=== PATIENT | male | born 1955 | race Caucasian/White ===

== ENCOUNTER 2017-08-09 09:17 | Inpatient (IN) | payer MEDICARE, MEDICAID ==
[~2017-08-09] VITALS: Ht 170.2 cm; Wt 74.0 kg
[2017-08-09] VITALS (10 sets, daily range): BP systolic 129–152; BP diastolic 58–89
[~2017-08-09 09:17] MED LIST: HYDR-565 PO; MULT-1179 MT; PANT-47 PO
[2017-08-09 10:28] LABS: BASOPHILS # (AUTO) 0.1 X10'3 (0-0.2); BASOPHILS % (AUTO) 2.1 % (0-1); EOSINOPHILS # (AUTO) 0.4 X10'3 (0-0.9); EOSINOPHILS % (AUTO) 5.7 % (0-6); HEMATOCRIT 23.4 % (42.0-52.0); LYMPHOCYTES # (AUTO) 1.1 X10'3 (1.1-4.8); LYMPHOCYTES % (AUTO) 17.3 % (21-51); MEAN CORPUSCULAR HEMOGLOBIN 20.8 PG (27.0-31.0); MEAN CORPUSCULAR HGB CONC 29.8 % (33.0-36.5); MEAN PLATELET VOLUME 9.7 FL (7.4-10.4); MONOCYTES # (AUTO) 0.6 X10'3 (0-0.9); MONOCYTES % (AUTO) 9.3 % (2-12); NEUTROPHILS # (AUTO) 4.3 X10'3 (1.8-7.7); NEUTROPHILS % (AUTO) 65.6 % (42-75); PLATELET COUNT 246 X10'3 (140-440); RED BLOOD COUNT 3.34 X10'6 (4.70-6.10); RED CELL DISTRIBUTION WIDTH 19.5 % (11.5-14.5); WHITE BLOOD COUNT 6.5 X10'3 (4.5-11.0)
[2017-08-09] MEDS ORDERED: normal saline 1000ML IV soln IVB ONE (10:35)
[2017-08-09 10:41] LABS: ALANINE AMINOTRANSFERASE 22 U/L (12-78); ALBUMIN 3.7 G/DL (3.4-5.0); ALKALINE PHOSPHATASE 71 IU/L (46-116); ANION GAP 8 (8-16); ASPARTATE AMINO TRANSFERASE 24 U/L (10-37); BILIRUBIN,TOTAL 0.3 MG/DL (0.1-1.0); BLOOD UREA NITROGEN 12 MG/DL (7-18); BUN/CREATININE RATIO 10.9 (5.4-32.0); CALCIUM 9.3 MG/DL (8.5-10.1); CHLORIDE 107 MMOL/L (99-107); GLUCOSE 93 MG/DL (70-104); POTASSIUM 4.5 MMOL/L (3.5-5.1); SODIUM 138 MMOL/L (135-145); TOTAL CARBON DIOXIDE 23.5 MMOL/L (24-32); TOTAL PROTEIN 7.3 G/DL (6.4-8.2); eGFR 68 ML/MIN
[2017-08-09 10:51] LABS: INR 0.9 INR; PARTIAL THROMBOPLASTIN TIME 24 SECONDS (22-32); PROTHROMBIN TIME 9.5 SECONDS (9.0-12.0)
[2017-08-09 11:06] LABS: CLARITY,URINE CLEAR (Clear); COLOR,URINE YELLOW (Yellow); GLUCOSE, URINE NEGATIVE (Neg); KETONES,URINE NEGATIVE (Neg); LEUKOCYTE ESTERASE ,URINE NEGATIVE (Neg); NITRITES, URINE NEGATIVE (Neg); OCCULT BLOOD,URINE SMALL (Neg); PROTEIN,URINE NEGATIVE (Neg); UROBILINOGEN,URINE 0.2 E.U/dL (0.2-1.0)
[2017-08-09 11:11] LABS: UA COLLECTION TYPE CLN CATCH MIDSTREAM
[2017-08-09 11:12] LABS: BACTERIA,URINE FEW /HPF (Neg); HYALINE CASTS 0-3 /LPF (NEGATIVE); MUCUS STRANDS FEW /LPF (Neg); SQUAMOUS EPITHELIAL CELL,UR FEW /LPF (FEW); WBC,URINE 0-4 /HPF (0-4)
[2017-08-09 11:13] LABS: URINE AMPHETAMINE SCREEN NEGATIVE (Neg); URINE BARBITUATE SCREEN NEGATIVE (Neg); URINE BENZODIAZEPINES SCREEN NEGATIVE (Neg); URINE CANNABINOID SCREEN NEGATIVE (Neg); URINE COCAINE SCREEN NEGATIVE (Neg); URINE METHADONE SCREEN NEGATIVE (Neg); URINE OPIATE SCREEN NEGATIVE (Neg); URINE PHENCYCLIDINE SCREEN NEGATIVE (Neg)
[2017-08-09 11:15] LABS: ETHANOL < 0.010 GM/DL (0.0-0.010)
[2017-08-09] MEDS ORDERED: pantoprazole 40MG/NS 100ML BAG 100 ML IV STA (12:32)
[2017-08-09] MEDS ORDERED: pantoprazole 40 MG vial IV ONE (12:35)
[2017-08-09] MEDS ORDERED: diphenhydrAMINE 50 mg/ml inj IV PRN (13:35)
[2017-08-09] MEDS ORDERED: ondansetron/PF 4mg/2ml inj IV PRN (13:35)
[2017-08-09] MEDS ORDERED: acetaminophen 650mg rectal suppository RC PRN (13:35)
[2017-08-09] MEDS ORDERED: metoclopramide 5 mg/ml inj IV PRN (13:35)
[2017-08-09] MEDS ORDERED: acetaminophen 325mg tablet PO PRN ×2 (13:35)
[2017-08-09] MEDS ORDERED: mag hydrox/Alum hydrox/simeth 30ml oral suspension PO PRN (13:35)
[2017-08-09] MEDS ORDERED: magnesium hydroxide 30ml (MOM) UD suspension PO PRN (13:35)
[2017-08-09] MEDS ORDERED: diphenhydrAMINE 25mg capsule PO PRN (13:35)
[2017-08-09] MEDS ORDERED: bisacodyl 10mg suppository rectal RC PRN (13:35)
[2017-08-09] MEDS ORDERED: PEG 3350/Na sulf,bicarb,Cl/KCl oral sol 4 liter bottle PO ONE (13:35)
[2017-08-09 14:30] LABS: RED BLOOD COUNT 3.43 X10'6 (4.70-6.10); RETICULOCYTE % (AUTO) 1.7 % (0.5-1.5)
[2017-08-09 14:44] LABS: MAGNESIUM 2.2 MG/DL (1.5-2.4)
[2017-08-09 14:48] LABS: ANISOCYTOSIS 2+; PLATELET ESTIMATE NORMAL; TOTAL CELLS COUNTED 100
[2017-08-09 14:49] LABS: HYPOCHROMASIA 2+; STOMATOCYTES FEW
[2017-08-09 14:57] LABS: % IRON SATURATION 2 % (11-46); IRON 12 UG/DL (53-167); TOTAL IRON BINDING CAPACITY 532 UG/DL (259-388)
[2017-08-09] MEDS: HYDROcodone/acetaminophen 10/325mg tab PO SCH ×2 (15:22→19:10)
[2017-08-09 15:24] LABS: HIV ANTIBODY 1&2 RAPID NON-REACTIVE (Neg)
[2017-08-09] MEDS: normal saline 1000ml 1,000 ML IV SCH (15:28)
[2017-08-09 15:40] LABS: FERRITIN 9 NG/ML (26-388)
[2017-08-09] MEDS ORDERED: iohexol 350MG/ML 100ml bottle IV ONE (16:22)
[2017-08-09] MEDS ORDERED: iohexol 300mg/ml 100ml inj. ONE (16:22)
[2017-08-09] MEDS: pantoprazole 40 MG vial IV SCH (19:09)
[2017-08-09] MEDS ORDERED: FLUT1DIS4 INH (19:10)
[2017-08-09] MEDS: docusate sod 100mg capsule PO SCH (19:10)
[2017-08-09] MEDS ORDERED: temazepam 15mg capsule PO PRN (21:00)
[2017-08-10] VITALS (12 sets, daily range): BP systolic 133–160; BP diastolic 70–82
[2017-08-10] MEDS: HYDROcodone/acetaminophen 10/325mg tab PO SCH ×4 (02:02→23:33)
[2017-08-10] MEDS: normal saline 1000ml 1,000 ML IV SCH ×3 (04:27→20:08)
[2017-08-10 06:46] LABS: ALANINE AMINOTRANSFERASE 25 U/L (12-78); ALBUMIN 3.2 G/DL (3.4-5.0); ALKALINE PHOSPHATASE 64 IU/L (46-116); ANION GAP 9 (8-16); ASPARTATE AMINO TRANSFERASE 21 U/L (10-37); BILIRUBIN,TOTAL 0.6 MG/DL (0.1-1.0); BLOOD UREA NITROGEN 7 MG/DL (7-18); BUN/CREATININE RATIO 6.5 (5.4-32.0); CALCIUM 8.3 MG/DL (8.5-10.1); CHLORIDE 109 MMOL/L (99-107); CREATININE 1.07 MG/DL (0.60-1.10); GLUCOSE 82 MG/DL (70-104); POTASSIUM 3.8 MMOL/L (3.5-5.1); SODIUM 143 MMOL/L (135-145); TOTAL CARBON DIOXIDE 24.8 MMOL/L (24-32); TOTAL PROTEIN 6.4 G/DL (6.4-8.2); eGFR 70 ML/MIN
[2017-08-10 06:51] LABS: BASOPHILS # (AUTO) 0.1 X10'3 (0-0.2); BASOPHILS % (AUTO) 1.2 % (0-1); EOSINOPHILS # (AUTO) 0.3 X10'3 (0-0.9); EOSINOPHILS % (AUTO) 3.9 % (0-6); HEMATOCRIT 27.4 % (42.0-52.0); HEMOGLOBIN 8.5 g/dl (14.0-17.9); LYMPHOCYTES % (AUTO) 12.2 % (21-51); MEAN CORPUSCULAR HEMOGLOBIN 22.9 PG (27.0-31.0); MEAN CORPUSCULAR HGB CONC 31.2 % (33.0-36.5); MEAN CORPUSCULAR VOLUME 73.3 FL (78-98); MEAN PLATELET VOLUME 9.9 FL (7.4-10.4); MONOCYTES # (AUTO) 0.6 X10'3 (0-0.9); MONOCYTES % (AUTO) 7.3 % (2-12); NEUTROPHILS # (AUTO) 6.3 X10'3 (1.8-7.7); NEUTROPHILS % (AUTO) 75.4 % (42-75); PLATELET COUNT 199 X10'3 (140-440); RED BLOOD COUNT 3.73 X10'6 (4.70-6.10); WHITE BLOOD COUNT 8.3 X10'3 (4.5-11.0)
[2017-08-10] MEDS: pantoprazole 40 MG vial IV SCH ×2 (07:48→20:08)
[2017-08-10] MEDS: docusate sod 100mg capsule PO SCH ×2 (07:49→20:00)
[2017-08-10] MEDS ORDERED: MIDAZolam 1mg/ml 10ml vial ONE (11:09)
[2017-08-10] MEDS ORDERED: fentaNYL/PF 50MCG/1 ML 2ML syringe ONE ×2 (11:09)
[2017-08-10] MEDS ORDERED: LIDOcaine Viscous 15ml cup ONE (11:09)
[2017-08-10] MEDS ORDERED: BARIUM SULFATE/METHYLCELLULOSE 600 ML SUSPENSION BOTTLE**DONT ENTER PO ONE (13:04)
[2017-08-10] MEDS ORDERED: normal saline 1000ml 1,000 ML IV SCH (13:31)
[2017-08-10] MEDS ORDERED: MIDAZolam 1mg/ml 10ml vial IV PRN (13:35)
[2017-08-10] MEDS ORDERED: LIDOcaine Viscous 15ml cup PO ONE (13:35)
[2017-08-10] MEDS ORDERED: simethicone 40mg/0.6ml oral drops 30ml MC ONE (13:35)
[2017-08-10] MEDS ORDERED: fentaNYL/PF 50MCG/1 ML 2ML syringe IV PRN (13:35)
[2017-08-10] MEDS: nicotine 21mg patch - 24 hr TD SCH (18:39)
[2017-08-10] MEDS ORDERED: HYDROcodone/acetaminophen 10/325mg tab PO SCH (23:30)
[2017-08-11] MEDS: HYDROcodone/acetaminophen 10/325mg tab PO SCH ×2 (05:45→12:38)
[2017-08-11] MEDS: normal saline 1000ml 1,000 ML IV SCH ×2 (05:46→08:51)
[2017-08-11 06:00] VITALS: BP 157/85
[2017-08-11] MEDS: nicotine 21mg patch - 24 hr TD SCH (06:43)
[2017-08-11 07:34] LABS: BASOPHILS # (AUTO) 0.1 X10'3 (0-0.2); BASOPHILS % (AUTO) 1.7 % (0-1); EOSINOPHILS # (AUTO) 0.4 X10'3 (0-0.9); EOSINOPHILS % (AUTO) 6.1 % (0-6); HEMATOCRIT 29.2 % (42.0-52.0); HEMOGLOBIN 9.1 g/dl (14.0-17.9); LYMPHOCYTES # (AUTO) 1.3 X10'3 (1.1-4.8); MEAN CORPUSCULAR HEMOGLOBIN 22.6 PG (27.0-31.0); MEAN CORPUSCULAR HGB CONC 30.9 % (33.0-36.5); MEAN CORPUSCULAR VOLUME 73.1 FL (78-98); MEAN PLATELET VOLUME 10.2 FL (7.4-10.4); MONOCYTES # (AUTO) 0.8 X10'3 (0-0.9); MONOCYTES % (AUTO) 11.1 % (2-12); NEUTROPHILS # (AUTO) 4.4 X10'3 (1.8-7.7); NEUTROPHILS % (AUTO) 62.1 % (42-75); PLATELET COUNT 210 X10'3 (140-440); RED CELL DISTRIBUTION WIDTH 22.7 % (11.5-14.5); WHITE BLOOD COUNT 7.1 X10'3 (4.5-11.0)
[2017-08-11 07:53] LABS: ALANINE AMINOTRANSFERASE 24 U/L (12-78); ALBUMIN 3.3 G/DL (3.4-5.0); ALBUMIN/GLOBULIN RATIO 0.9 (1.1-1.5); ALKALINE PHOSPHATASE 68 IU/L (46-116); ANION GAP 11 (8-16); ASPARTATE AMINO TRANSFERASE 21 U/L (10-37); BILIRUBIN,TOTAL 0.6 MG/DL (0.1-1.0); BLOOD UREA NITROGEN 7 MG/DL (7-18); BUN/CREATININE RATIO 7.7 (5.4-32.0); CALCIUM 8.6 MG/DL (8.5-10.1); CHLORIDE 106 MMOL/L (99-107); CREATININE 0.91 MG/DL (0.60-1.10); GLUCOSE 89 MG/DL (70-104); POTASSIUM 3.6 MMOL/L (3.5-5.1); SODIUM 140 MMOL/L (135-145); TOTAL CARBON DIOXIDE 23.1 MMOL/L (24-32); TOTAL PROTEIN 6.8 G/DL (6.4-8.2); eGFR 84 ML/MIN
[2017-08-11] MEDS: docusate sod 100mg capsule PO SCH (08:00)
[2017-08-11] MEDS: pantoprazole 40 MG vial IV SCH (08:00)
[2017-08-11 08:30] VITALS: BP 152/81
[2017-08-11 08:32] VITALS: BP 163/86
[2017-08-11 10:00] VITALS: BP 154/77
[2017-08-12 11:26] LABS: VITAMIN D, 25-HYDROXY 20.9 ng/mL (30.0-100.0)
[2017-08-14 14:28] LABS: OCCULT BLOOD STOOL NEGATIVE (Neg)
== END 2017-08-11 13:30 | disposition home or self-care (01) | DRG 812 ==
LOC: ER 09:17 → ED HOLD 13:31 → ORTHO 4S 16:36
PROVIDERS: ADMIT Family Medicine; ATTEND Family Medicine
PROC: 30233N1 Transfusion of Nonautologous Red Blood Cells into Peripheral Vein, Percutaneous Approach (ICD-10-PCS; principal; 2017-08-09)
PROC: 0DB98ZX Excision of Duodenum, Via Natural or Artificial Opening Endoscopic, Diagnostic (ICD-10-PCS; 2017-08-10)
PROC: 0DB68ZX Excision of Stomach, Via Natural or Artificial Opening Endoscopic, Diagnostic (ICD-10-PCS; 2017-08-10)
PROC: 0DJD8ZZ Inspection of Lower Intestinal Tract, Via Natural or Artificial Opening Endoscopic (ICD-10-PCS; 2017-08-10)
DX: D50.9 Iron deficiency anemia, unspecified (principal); K70.30 Alcoholic cirrhosis of liver without ascites; E86.0 Dehydration; J44.9 Chronic obstructive pulmonary disease, unspecified; K29.70 Gastritis, unspecified, without bleeding; K55.20 Angiodysplasia of colon without hemorrhage; G43.909 Migraine, unspecified, not intractable, without status migrainosus; G89.29 Other chronic pain; M54.9 Dorsalgia, unspecified; F10.20 Alcohol dependence, uncomplicated; F17.210 Nicotine dependence, cigarettes, uncomplicated; Z88.0 Allergy status to penicillin; Z88.6 Allergy status to analgesic agent; Z79.899 Other long term (current) drug therapy; Z87.442 Personal history of urinary calculi
CPT/HCPCS: 36415; 43239; 45378; 70450; 71046; 74178; 74250; 80053; 80305; 80320; 81001; 82272; 82306; 82607; 82728; 82746; 83010; 83540; 83550; 83615; 83735; 83880; 84100; 84443; 84466; 84484; 85007; 85025; 85045; 85610; 85730; 86703; 86885; 86900; 86901; 86920; 87070; 93005; 94640; 94760; 96361; 96365; 96375; 99285; C9113; G0500; J2250; J2270; J3010; J7030; P9016; Q9967

== ENCOUNTER 2017-08-23 18:13 | Emergency (ER) | payer MEDICARE, MEDICAID ==
[~2017-08-23] VITALS: Ht 172.7 cm; Wt 72.0 kg
[~2017-08-23 18:13] MED LIST changes: +FLUT1DIS4 INH; -HYDR-565 PO
[2017-08-23] MEDS ORDERED: normal saline 1000ML IV soln IV ONE (18:50)
[2017-08-23 19:10] LABS: CLARITY,URINE CLEAR (Clear); COLOR,URINE YELLOW (Yellow); GLUCOSE, URINE NEGATIVE (Neg); KETONES,URINE NEGATIVE (Neg); LEUKOCYTE ESTERASE ,URINE NEGATIVE (Neg); NITRITES, URINE NEGATIVE (Neg); OCCULT BLOOD,URINE TRACE-INTACT (Neg); PH,URINE 5.5 (4.8-8.0); PROTEIN,URINE TRACE mg/dl (Neg); UROBILINOGEN,URINE 0.2 E.U/dL (0.2-1.0)
[2017-08-23 19:19] LABS: UA COLLECTION TYPE CLN CATCH MIDSTREAM
[2017-08-23 19:20] LABS: BACTERIA,URINE FEW /HPF (Neg); SQUAMOUS EPITHELIAL CELL,UR FEW /LPF (FEW)
[2017-08-23 19:21] LABS: RBC,URINE 0-2 /HPF (0-2); WBC,URINE 0-4 /HPF (0-4)
[2017-08-23 19:27] LABS: BASOPHILS # (AUTO) 0.1 X10'3 (0-0.2); BASOPHILS % (AUTO) 0.4 % (0-1); EOSINOPHILS # (AUTO) 0.4 X10'3 (0-0.9); EOSINOPHILS % (AUTO) 2.4 % (0-6); HEMATOCRIT 31.2 % (42.0-52.0); LYMPHOCYTES # (AUTO) 1.3 X10'3 (1.1-4.8); LYMPHOCYTES % (AUTO) 8.6 % (21-51); MEAN CORPUSCULAR HEMOGLOBIN 23.8 PG (27.0-31.0); MEAN CORPUSCULAR VOLUME 74.5 FL (78-98); MEAN PLATELET VOLUME 9.8 FL (7.4-10.4); MONOCYTES # (AUTO) 1.2 X10'3 (0-0.9); MONOCYTES % (AUTO) 7.9 % (2-12); NEUTROPHILS # (AUTO) 11.8 X10'3 (1.8-7.7); NEUTROPHILS % (AUTO) 80.7 % (42-75); PLATELET COUNT 244 X10'3 (140-440); RED BLOOD COUNT 4.19 X10'6 (4.70-6.10); RED CELL DISTRIBUTION WIDTH 26.1 % (11.5-14.5); WHITE BLOOD COUNT 14.7 X10'3 (4.5-11.0)
[2017-08-23] MEDS ORDERED: ipratropium/albuterol 3ml nebule NEB ONE (19:30)
[2017-08-23 19:38] LABS: INR 0.9 INR; PARTIAL THROMBOPLASTIN TIME 27 SECONDS (22-32); PROTHROMBIN TIME 9.7 SECONDS (9.0-12.0)
[2017-08-23 19:50] LABS: ANION GAP 13 (8-16); BLOOD UREA NITROGEN 11 MG/DL (7-18); BUN/CREATININE RATIO 13.8 (5.4-32.0); CHLORIDE 106 MMOL/L (99-107); GLUCOSE 103 MG/DL (70-104); POTASSIUM 4.2 MMOL/L (3.5-5.1); SODIUM 142 MMOL/L (135-145); TOTAL CARBON DIOXIDE 23.5 MMOL/L (24-32)
[2017-08-23] MEDS ORDERED: levoFLOXACIN 750MG TABLET PO ONE (19:50)
[2017-08-23 19:51] LABS: ALANINE AMINOTRANSFERASE 33 U/L (12-78); ALBUMIN 3.7 G/DL (3.4-5.0); ALKALINE PHOSPHATASE 93 IU/L (46-116); ASPARTATE AMINO TRANSFERASE 23 U/L (10-37); BILIRUBIN,TOTAL 0.5 MG/DL (0.1-1.0); CALCIUM 9.3 MG/DL (8.5-10.1); MAGNESIUM 1.9 MG/DL (1.5-2.4); TOTAL PROTEIN 7.4 G/DL (6.4-8.2); eGFR > 90 ML/MIN
[2017-08-23] MEDS ORDERED: normal saline 1000ml 1,000 ML IV ONE (20:05)
[2017-08-23] MEDS ORDERED: ketorolac trometh. 30mg/ml inj. IV ONE (20:55)
[2017-08-23] MEDS ORDERED: acetaminophen 325mg tablet PO ONE (20:55)
[2017-08-23 21:01] LABS: ANISOCYTOSIS 3+; HYPOCHROMASIA 1+; PLATELET ESTIMATE NORMAL
[2017-08-23 21:23] LABS: SCHISTOCYTES FEW
[2017-08-23] MEDS ORDERED: LEVO500T2 PO (21:30)
[2017-08-23 21:48] VITALS: BP 164/68
== END 2017-08-23 21:51 | disposition home or self-care (01) ==
LOC: ER 18:13
DX: J18.9 Pneumonia, unspecified organism (principal); J44.0 Chronic obstructive pulmonary disease with (acute) lower respiratory infection; G89.29 Other chronic pain; G43.909 Migraine, unspecified, not intractable, without status migrainosus; I49.9 Cardiac arrhythmia, unspecified; Z87.442 Personal history of urinary calculi; Z59.0 Homelessness; Z88.0 Allergy status to penicillin; Z88.5 Allergy status to narcotic agent; Z79.899 Other long term (current) drug therapy
CPT/HCPCS: 36415; 71045; 80053; 81001; 83605; 83735; 84145; 85025; 85610; 85730; 87040; 93005; 94640; 94760; 96361; 96374; 99285; J1885; J7030

== ENCOUNTER 2017-09-15 09:08 | Inpatient (IN) | payer MEDICARE, MEDICAID ==
[~2017-09-15] VITALS: Ht 172.7 cm; Wt 73.6 kg
[2017-09-15] MEDS ORDERED: metoprolol tartrate 1mg/ml inj IV ONE (09:15)
[2017-09-15 09:50] LABS: BASOPHILS % (AUTO) 0.2 % (0-1); EOSINOPHILS # (AUTO) 0.3 X10'3 (0-0.9); HEMATOCRIT 32.6 % (42.0-52.0); HEMOGLOBIN 10.6 g/dl (14.0-17.9); MEAN CORPUSCULAR HEMOGLOBIN 25.5 PG (27.0-31.0); MEAN CORPUSCULAR HGB CONC 32.4 % (33.0-36.5); MEAN CORPUSCULAR VOLUME 78.9 FL (78-98); MEAN PLATELET VOLUME 9.4 FL (7.4-10.4); MONOCYTES # (AUTO) 0.5 X10'3 (0-0.9); MONOCYTES % (AUTO) 9.2 % (2-12); NEUTROPHILS # (AUTO) 3.7 X10'3 (1.8-7.7); NEUTROPHILS % (AUTO) 67.6 % (42-75); PLATELET COUNT 112 X10'3 (140-440); RED BLOOD COUNT 4.14 X10'6 (4.70-6.10); RED CELL DISTRIBUTION WIDTH 27.3 % (11.5-14.5); WHITE BLOOD COUNT 5.4 X10'3 (4.5-11.0)
[2017-09-15 10:12] LABS: ALANINE AMINOTRANSFERASE 42 U/L (12-78); ALBUMIN 3.7 G/DL (3.4-5.0); ALBUMIN/GLOBULIN RATIO 1.1 (1.1-1.5); ALKALINE PHOSPHATASE 63 IU/L (46-116); ANION GAP 10 (8-16); ASPARTATE AMINO TRANSFERASE 30 U/L (10-37); BILIRUBIN,TOTAL 0.5 MG/DL (0.1-1.0); BLOOD UREA NITROGEN 13 MG/DL (7-18); BUN/CREATININE RATIO 14.9 (5.4-32.0); CALCIUM 9.2 MG/DL (8.5-10.1); CHLORIDE 109 MMOL/L (99-107); CREATININE 0.87 MG/DL (0.60-1.10); GLUCOSE 135 MG/DL (70-104); POTASSIUM 3.6 MMOL/L (3.5-5.1); SODIUM 145 MMOL/L (135-145); TOTAL CARBON DIOXIDE 25.8 MMOL/L (24-32); TOTAL PROTEIN 7.1 G/DL (6.4-8.2); eGFR 89 ML/MIN
[2017-09-15 10:25] LABS: ANISOCYTOSIS 3+; HYPOCHROMASIA 1+; MICROCYTOSIS 1+; PLATELET ESTIMATE DECREASED; POLYCHROMASIA 1+; TEAR DROP CELLS FEW
[2017-09-15 10:26] LABS: SCHISTOCYTES FEW; TARGET CELLS 1+
[2017-09-15] MEDS ORDERED: magnesium Cl slow-release 64mg tablet PO PRN (11:30)
[2017-09-15] MEDS ORDERED: acetaminophen 325mg tablet PO PRN (11:30)
[2017-09-15] MEDS ORDERED: magnesium 2GM in 50ml NS 50 ML IV PRN (11:30)
[2017-09-15] MEDS ORDERED: potassium Cl 20 mEq SR tablet PO PRN ×2 (11:30)
[2017-09-15] MEDS ORDERED: magnesium hydroxide 30ml (MOM) UD suspension PO PRN (11:30)
[2017-09-15] MEDS ORDERED: magnesium 4gm in 100ml NS 100 ML IV PRN (11:30)
[2017-09-15] MEDS ORDERED: ondansetron/PF 4mg/2ml inj IV PRN (11:30)
[2017-09-15] MEDS ORDERED: potassium Cl 40MEQ/NS 500ml 500 ML IV PRN ×2 (11:30)
[2017-09-15] MEDS ORDERED: mag hydrox/Alum hydrox/simeth 30ml oral suspension PO PRN (11:30)
[2017-09-15] MEDS: normal saline 1000ml 1,000 ML IV SCH (11:44)
[2017-09-15 12:23] LABS: URINE AMPHETAMINE SCREEN NEGATIVE (Neg); URINE BARBITUATE SCREEN NEGATIVE (Neg); URINE BENZODIAZEPINES SCREEN NEGATIVE (Neg); URINE CANNABINOID SCREEN NEGATIVE (Neg); URINE COCAINE SCREEN NEGATIVE (Neg); URINE METHADONE SCREEN NEGATIVE (Neg); URINE OPIATE SCREEN NEGATIVE (Neg); URINE PHENCYCLIDINE SCREEN NEGATIVE (Neg)
[2017-09-15] MEDS ORDERED: acetaminophen 325mg tablet PO ONE (12:40)
[2017-09-15] MEDS: diltiazem 30mg tablet PO SCH ×2 (15:03→20:00)
[2017-09-15 16:30] VITALS: BP 141/78
[2017-09-15 18:00] VITALS: BP 150/69
[2017-09-15] MEDS: heparin, porcine 5000 units/ml vial SQ SCH (20:00)
[2017-09-15] MEDS ORDERED: non-formulary drug (Fluticasone/Salmeterol (Advair 250-50 Diskus) 1 PUFFS) INH SCH (20:00)
[2017-09-15 22:00] VITALS: BP 148/54
[2017-09-15] MEDS ORDERED: nicotine 7mg patch - 24hr TD SCH (23:00)
[2017-09-16 02:00] VITALS: BP 157/79
[2017-09-16] MEDS: diltiazem 30mg tablet PO SCH ×3 (02:10→13:17)
[2017-09-16 05:10] LABS: BASOPHILS % (AUTO) 0.7 % (0-1); EOSINOPHILS # (AUTO) 0.4 X10'3 (0-0.9); EOSINOPHILS % (AUTO) 7.1 % (0-6); HEMATOCRIT 30.6 % (42.0-52.0); HEMOGLOBIN 10.2 g/dl (14.0-17.9); LYMPHOCYTES # (AUTO) 1.2 X10'3 (1.1-4.8); LYMPHOCYTES % (AUTO) 20.9 % (21-51); MEAN CORPUSCULAR HEMOGLOBIN 25.8 PG (27.0-31.0); MEAN CORPUSCULAR HGB CONC 33.2 % (33.0-36.5); MEAN CORPUSCULAR VOLUME 77.8 FL (78-98); MONOCYTES # (AUTO) 0.6 X10'3 (0-0.9); MONOCYTES % (AUTO) 10.4 % (2-12); NEUTROPHILS # (AUTO) 3.6 X10'3 (1.8-7.7); NEUTROPHILS % (AUTO) 60.9 % (42-75); PLATELET COUNT 109 X10'3 (140-440); RED BLOOD COUNT 3.94 X10'6 (4.70-6.10); RED CELL DISTRIBUTION WIDTH 27.3 % (11.5-14.5); WHITE BLOOD COUNT 5.9 X10'3 (4.5-11.0)
[2017-09-16 05:28] LABS: ALANINE AMINOTRANSFERASE 35 U/L (12-78); ALBUMIN 3.2 G/DL (3.4-5.0); ALKALINE PHOSPHATASE 54 IU/L (46-116); ANION GAP 10 (8-16); ASPARTATE AMINO TRANSFERASE 26 U/L (10-37); BILIRUBIN,TOTAL 0.4 MG/DL (0.1-1.0); BLOOD UREA NITROGEN 14 MG/DL (7-18); BUN/CREATININE RATIO 20.6 (5.4-32.0); CALCIUM 8.7 MG/DL (8.5-10.1); CHLORIDE 109 MMOL/L (99-107); CREATININE 0.68 MG/DL (0.60-1.10); GLUCOSE 103 MG/DL (70-104); POTASSIUM 3.9 MMOL/L (3.5-5.1); SODIUM 143 MMOL/L (135-145); TOTAL CARBON DIOXIDE 23.6 MMOL/L (24-32); TOTAL PROTEIN 6.3 G/DL (6.4-8.2); eGFR > 90 ML/MIN
[2017-09-16 06:00] VITALS: BP 154/87
[2017-09-16 07:16] LABS: ANISOCYTOSIS 3+; LARGE PLATELETS FEW; MICROCYTOSIS 1+; PLATELET ESTIMATE DECREASED; POLYCHROMASIA 1+
[2017-09-16] MEDS ORDERED: pantoprazole 40mg Tablet.DR PO SCH (08:00)
[2017-09-16] MEDS ORDERED: K and/or MAG REPLACEMENT MC SCH (08:00)
[2017-09-16] MEDS: normal saline 1000ml 1,000 ML IV SCH (08:45)
[2017-09-16] MEDS: heparin, porcine 5000 units/ml vial SQ SCH (08:47)
[2017-09-16 11:00] VITALS: BP 147/87
[2017-09-16] MEDS ORDERED: ALBU8HFA PO (14:53)
[2017-09-16] MEDS ORDERED: DILT120C62 PO (14:53)
[2017-09-16 15:00] VITALS: BP 149/87
== END 2017-09-16 17:50 | disposition home or self-care (01) | DRG 312 ==
LOC: ER 09:09 → ED HOLD 11:27 → PCU 3S 16:25
PROVIDERS: ADMIT Internal Medicine; ATTEND Internal Medicine
DX: R55 Syncope and collapse (principal); K74.60 Unspecified cirrhosis of liver; I47.1 Supraventricular tachycardia; F17.210 Nicotine dependence, cigarettes, uncomplicated; J44.9 Chronic obstructive pulmonary disease, unspecified; K21.9 Gastro-esophageal reflux disease without esophagitis; G43.909 Migraine, unspecified, not intractable, without status migrainosus; G89.29 Other chronic pain; M54.9 Dorsalgia, unspecified; Z59.0 Homelessness; Z88.5 Allergy status to narcotic agent; Z88.0 Allergy status to penicillin; Z79.899 Other long term (current) drug therapy; Z87.442 Personal history of urinary calculi; Z71.6 Tobacco abuse counseling
CPT/HCPCS: 36415; 71045; 80053; 80305; 83735; 83880; 84484; 85025; 87070; 93005; 93306; 93880; 94760; 96374; 99285; J1644; J3490; J7030

== ENCOUNTER 2017-10-02 15:28 | Emergency (ER) | payer MEDICARE, MEDICAID ==
[~2017-10-02] VITALS: Ht 165.1 cm; Wt 72.0 kg
[~2017-10-02 15:28] MED LIST changes: +ALBU8HFA PO; +DILT120C62 PO
[2017-10-02 17:34] VITALS: BP 157/88
== END 2017-10-02 17:36 | disposition home or self-care (01) ==
LOC: ER 15:28
DX: F10.129 Alcohol abuse with intoxication, unspecified (principal); Y90.9 Presence of alcohol in blood, level not specified; J44.9 Chronic obstructive pulmonary disease, unspecified; G89.29 Other chronic pain; G43.909 Migraine, unspecified, not intractable, without status migrainosus; Z87.442 Personal history of urinary calculi; Z88.0 Allergy status to penicillin; Z88.5 Allergy status to narcotic agent; Z59.0 Homelessness
CPT/HCPCS: 99283